=== PATIENT | male | born 1955 | race Caucasian/White ===

== ENCOUNTER 2021-03-19 13:29 | Inpatient (IN) | payer MEDICARE, OTHER ==
[~2021-03-19] VITALS: Ht 180.3 cm; Wt 81.2 kg
[2021-03-19] MEDS ORDERED: LACT10SO3 PO (14:47)
[2021-03-19] MEDS ORDERED: LEVO150T8 PO (14:47)
[2021-03-19] MEDS ORDERED: OLOP2.5D12 EACHEYE (14:47)
[2021-03-19] MEDS ORDERED: LOSA100T31 PO (14:47)
[2021-03-19] MEDS ORDERED: METF-440 PO (14:47)
[2021-03-19] MEDS ORDERED: NAPH15DR68 EACHEYE (14:47)
[2021-03-19] MEDS ORDERED: CHOL100043 PO (14:47)
[2021-03-19] MEDS ORDERED: MAGN400O6 PO (14:47)
[2021-03-19] MEDS ORDERED: ACET-868 PO (14:47)
[2021-03-19] MEDS ORDERED: FENO54TA PO (14:47)
[2021-03-19] MEDS ORDERED: BENZ0.5T43 PO (14:47)
[2021-03-19] MEDS ORDERED: MELA3TAB41 PO (14:47)
[2021-03-19] MEDS ORDERED: ALBU8.5H8 IH (14:47)
[2021-03-19] MEDS ORDERED: NAPR-1009 PO (14:47)
[2021-03-19] MEDS ORDERED: BISA10SU11 RC (14:47)
[2021-03-19] MEDS ORDERED: DOCU-141 PO (14:47)
--- NOTE | 2021-03-19 14:51 | NUR ---
DR BLISS AT BEDSIDE
--- NOTE | 2021-03-19 15:20 | NUR ---
CALLED [facility] [phone] RN IS FE HAPPENED AROUND "12ISH" COVID VACCINE IS CURRENT WITH MODERNA 1) 04/10/20 2) 05/09/20 3) 02-05-2021
--- NOTE | 2021-03-19 15:30 | NUR ---
IV LINE STARTED BLOOD DRAWN, SPECIMEN COLLECTED AND SENT TO LAB.
[2021-03-19 15:39] LABS: BASOPHILS # (AUTO) 0.1 K/uL (0.0-0.2); BASOPHILS % (AUTO) 0.7 % (0.0-2.0); HEMATOCRIT 50 % (39-51); HEMOGLOBIN 16.8 g/dL (13.5-17.5); LYMPHOCYTES # (AUTO) 1.2 K/uL (0.8-4.8); LYMPHOCYTES % (AUTO) 6.2 % (20.0-44.0); MEAN CORPUSCULAR HGB CONC 34 g/dl (31.0-36.0); MEAN CORPUSCULAR VOLUME 90 fL (80-96); MONOCYTES # (AUTO) 1.8 K/uL (0.1-1.30); MONOCYTES % (AUTO) 8.8 % (2.0-12.0); NEUTROPHILS # (AUTO) 17.1 K/uL (1.8-8.9); NEUTROPHILS % (AUTO) 84.3 % (43.0-81.0); PLATELET COUNT (AUTO) 310 K/uL (150-450); RED BLOOD CELL COUNT(AUTO) 5.52 MIL/uL (4.5-6.0); WHITE BLOOD COUNT (AUTO) 20.2 K/uL (4.3-11.0)
--- NOTE | 2021-03-19 15:45 | NUR ---
PT TO RADIOLOGY FOR HEAD CT SCAN VIA [facility].
[2021-03-19 15:51] LABS: CARBON DIOXIDE 26 mmol/L (21-32); CHLORIDE 93 mmol/L (98-107); CREATININE 1.5 mg/dL (0.6-1.3); GLUCOSE 154 mg/dL (74-106); POTASSIUM 3.6 mmol/L (3.5-5.1); SODIUM SERUM 129 mmol/L (136-145); UREA NITROGEN, BLOOD 19 mg/dL (7-18)
[2021-03-19 16:02] LABS: ACETAMINOPHEN < 0 ug/ml (10-30); ALANINE AMINOTRANSFERASE 40 U/L (12-78); ALBUMIN 4.4 g/dL (3.4-5.0); ALCOHOL, BLOOD < 3 mg/dL (0-0); ALKALINE PHOSPHATASE 87 U/L (46-116); ASPARTATE AMINOTRANSFERASE 26 U/L (15-37); BILIRUBIN,DIRECT 0.1 mg/dL (0.0-0.2); BILIRUBIN,TOTAL 0.5 mg/dL (0.2-1.0); TOTAL PROTEIN, SERUM 8.3 g/dL (6.4-8.2)
--- NOTE | 2021-03-19 16:04 | NUR ---
COVID TEST COLLECTED AND SENT
[2021-03-19 16:07] LABS: THYROID STIMULATING HORMONE 2.535 uIU/mL (0.358-3.74)
[2021-03-19 16:22] LABS: BILIRUBIN,URINE Negative (NEGATIVE); COLOR,URINE YELLOW (YELLOW); LEUKOCYTE ESTERASE ,URINE Negative (NEGATIVE); NITRITE, URINE Negative (NEGATIVE); PH,URINE 5.5 (5.0-8.0); PROTEIN,URINE 100 mg/dl (NEGATIVE); UGLUCOSE 100 MG/DL mg/dL (NEGATIVE); UROBILINOGEN,URINE 0.2 EU/dL (0.2)
--- NOTE | 2021-03-19 16:40 | NUR ---
URINE COLLECTED AND SENT TO LAB
[2021-03-19 16:45] LABS: BACTERIA,URINE None seen /HPF (None Seen); SQUAMOUS EPITHELIAL CELL,UR Few /HPF (None Seen); WBC,URINE 0-2 /HPF (0-3)
[2021-03-19] MEDS: VANCOMYCIN 1 GM in IV D5W 250 ML IV ONE ×2 (17:00→17:30)
[2021-03-19] MEDS ORDERED: PIPERACILLIN /TAZOBACTAM 2.25 G in IV D5W 50 ML IV ONE (17:00)
[2021-03-19] MEDS ORDERED: ONDANSETRON HCL/PF 4 MG/2 ML VIAL IVP PRN (17:30)
[2021-03-19] MEDS ORDERED: ACETAMINOPHEN 325 MG TABLET PO PRN (17:30)
[2021-03-19] MEDS ORDERED: MAGNESIUM HYDROXIDE 30 ML UDC PO PRN (17:30)
[2021-03-19] MEDS ORDERED: MAG HYDROX/AL HYDROX/SIMETH 30 ML UDC PO PRN (17:30)
[2021-03-19] MEDS ORDERED: IV NS 0.9% 1,000 ML BAG IV ONE (17:30)
[2021-03-19] MEDS ORDERED: Z GUARD REMEDY 2 OZ OINT TP PRN (17:30)
--- NOTE | 2021-03-19 20:07 | NUR ---
ROOM 118-1
--- NOTE | 2021-03-19 20:19 | NUR ---
CALLED [facility] FOR REPORT, NURSE WILL CALL BACK
--- NOTE | 2021-03-19 20:51 | NUR ---
REPORT GIVEN TO THEA BO
--- NOTE | 2021-03-19 22:02 | NUR ---
RETAIL INTERIOR DESIGNER NOTE RECEIVED PATIENT FROM ER, 65 YR OLD MALE, WITH D/X OF SEPSIS BY . IS A/OX 2,AT CONFUSED AT TIMES. WITH NO DISCOMFORT OR IN DISTRESS, NO SOB , O2 SAT 97% AT RA. IV SL AT LEFT HAND #18G, INTACT AND PATENT. PATIENT IS ON ISOLATION PRECAUTIONS WITH PENDING PCR IN PLACE. ISOLATION PRECAUTIONS TAKEN, ORIENTED THE PATIENT TO HIS ROOM, SKIN INTACT, ADMITTING ORDERS CHECKED. CALL LIGHT WITHIN REACH, BED IN LOW POSITION, LOCKED, SIDE RAILS UP X3, REMINDED PATIENT TO CALL US IF HE NEEDS ANTYTHING. CONTINUE TO MONITOR.
[2021-03-19] MEDS: IV NS 0.9% 1,000 ML IV PRN (22:25)
[2021-03-20] VITALS: BP 164/94
[2021-03-20] MEDS: ZOSYN IVPB 3.375 G in IV D5W 50ml IV SCH ×5 (00:10→23:34)
[2021-03-20] MEDS ORDERED: INSULIN REGULAR, HUMAN 100 UNIT/ML 3 ML VIAL SQ PRN (01:00)
[2021-03-20] MEDS ORDERED: DEXTROSE 50%-WATER 50 ML DISP.SYRIN IV PRN (01:00)
[2021-03-20] MEDS ORDERED: *INSULIN REGULAR(HUMULIN R)HUM 100 UNIT/ML VIAL SQ PRN (01:00)
[2021-03-20] MEDS ORDERED: CLONIDINE HCL 0.1 MG TABLET PO PRN (01:00)
[2021-03-20] MEDS: BLOOD SUGAR DIAGNOSTIC 1 EACH STRIP VI SCH ×5 (01:02→22:41)
--- NOTE | 2021-03-20 02:07 | NUR ---
BRASS ROLLER NOTE RE- ASSESSED PATIENT AFTER ADMINISTRATION OF CLONIDINE AT @0107 , BP WAS DECREASED TO 132/83 AT @0207
[2021-03-20 04:00] VITALS: BP 119/81
--- NOTE | 2021-03-20 05:30 | NUR ---
IV SITE INFILTRATED, REMOVED IV FROM THE LEFT HAND, TRIED X3 TO REINSERT BUT NO SUCCESS. CHARGE NURSE INFORMED, SHE WILL TRY IT.
[2021-03-20] MEDS ORDERED: VANCOMYCIN HCL 0.75 GM in IV D5W 250 ML IV SCH (06:00)
--- NOTE | 2021-03-20 06:53 | NUR ---
BAKER BISCUIT NOTE PATIENT IN BED ASLEEP. NO DISCOMFORT OR DISTRESS NOTED. SINUS RHYTHM DURING THE SHIFT, SIDE RAILS UP. CALL LIGHT WITHIN REACH, WILL ENDORSE TO DAY SHIFT NURSE.
[2021-03-20 07:13] LABS: BASOPHILS # (AUTO) 0.1 K/uL (0.0-0.2); BASOPHILS % (AUTO) 0.7 % (0.0-2.0); EOSINOPHILS % (AUTO) 0.2 % (0.0-6.0); HEMATOCRIT 43 % (39-51); HEMOGLOBIN 14.9 g/dL (13.5-17.5); LYMPHOCYTES # (AUTO) 1.8 K/uL (0.8-4.8); MEAN CORPUSCULAR HGB CONC 35 g/dl (31.0-36.0); MEAN CORPUSCULAR VOLUME 91 fL (80-96); MONOCYTES # (AUTO) 1.2 K/uL (0.1-1.30); MONOCYTES % (AUTO) 11.7 % (2.0-12.0); NEUTROPHILS # (AUTO) 7.4 K/uL (1.8-8.9); NEUTROPHILS % (AUTO) 70.4 % (43.0-81.0); PLATELET COUNT (AUTO) 254 K/uL (150-450); RED BLOOD CELL COUNT(AUTO) 4.72 MIL/uL (4.5-6.0); WHITE BLOOD COUNT (AUTO) 10.4 K/uL (4.3-11.0)
--- NOTE | 2021-03-20 07:25 | NUR ---
RN OPENING NOTES RECEIVED PT ON BED, AWAKE AND VERBALLY RESPONSIVE, NO SIGNS OF ACUTE RESPIRATORY DISTRESS NOTED. ON ROOM AIR, TOLERATING WELL, NO SOB NOTED, BREATHING EVEN AND UNLABORED. ON CALL CENTRE SUPERVISOR WITH CURRENT READING OF SR WITH HR @72. SAFETY MEASURES IN PLACE. BED LOCKED AND IN LOWEST POSITION, SR UP X2, CALL LIGHT PLACED WITHIN EASY REACH. WILL CONTINUE TO MONITOR.
[2021-03-20 07:48] LABS: CALCIUM, SERUM 9.2 mg/dL (8.5-10.1); CREATININE 1.2 mg/dL (0.6-1.3); MAGNESIUM 2.2 mg/dL (1.8-2.4); PHOSPHORUS 3.1 mg/dL (2.5-4.9); POTASSIUM 3.8 mmol/L (3.5-5.1)
[2021-03-20 08:00] VITALS: BP 152/97
[2021-03-20] MEDS: LEVETIRACETAM (250 MG) 250 MG TABLET PO SCH ×2 (11:16→21:54)
[2021-03-20 12:00] VITALS: BP 157/74
[2021-03-20 16:00] VITALS: BP 115/68
--- NOTE | 2021-03-20 18:42 | NUR ---
RN CLOSING NOTES PATIENT ON BED, AWAKE AND VERBALLY RESPONSIVE, NO SIGNS OF ACUTE RESPIRATORY DISTRESS NOTED. REMAINS ON ROOM AIR, TOLERATING WELL, NO SOB, BREATHING EVEN AND UNLABORED. NO COMPLAINS OF PAIN OR DISCOMFORT AT THIS TIME. ON PHERESIS SPECIALIST WITH NSR WITH HR @92. ALL DUE MEDS GIVEN, TOLERATED WELL. VIDAL ML #18G AND LHAND #22G IV ACCESS, INTACT AND PATENT, WITH NS @75ML/HR RUNNING. SAFETY MEASURES IN PLACE. BED LOCKED AND IN LOWEST POSITION, SR UP X2, CALL LIGHT PLACED WITHIN EASY REACH. WILL ENDORSE TO NEXT SHIFT.
--- NOTE | 2021-03-20 19:50 | NUR ---
RN NOTES RECEIVED CARE OF PATIENT WHILE PATIENT IN BED, ASLEEP BUT WAKES UP TO NAME. PATIENT IS A/O X2. PATIENT IS ON ROOM AIR, O2 SAT AT THIS TIME IS 98%, NO SOB NOTED. PATIENT IS ON TELE MONITOR, NSR WITH HR OF 67, NO SIGNS OF DISTRESS NOTED. VIDAL ML #18G AND LHAND #22G IV ACCESS, INTACT AND PATENT, WITH NS @75ML/HR RUNNING. NO SIGNIFICANT FINDINGS UPON INITIAL NURSING ASSESSMENTS, ALL SAFETY MEASURES IN PLACE. BED LOCKED AND IN LOWEST POSITION, SR UP X2, CALL LIGHT PLACED WITHIN EASY REACH. WILL CONTINUE TO MONITOR FOR ANY CHANGES IN PATIENT'S CONDITION.
[2021-03-20 20:00] VITALS: BP 144/79
--- NOTE | 2021-03-20 22:41 | NUR ---
RN NOTES BLOOD SUGAR IS 101 mg/dL AT THIS TIME. NO INSULIN COVERAGE NEEDED PER SLIDING SCALE. WILL CONTINUE TO MONITOR PATIENT.
[2021-03-21] VITALS: BP 124/65
[2021-03-21 04:00] VITALS: BP 117/75
[2021-03-21] MEDS: ZOSYN IVPB 3.375 G in IV D5W 50ml IV SCH ×3 (06:16→17:16)
--- NOTE | 2021-03-21 07:00 | NUR ---
RN CLOSING NOTES WILL ENDORSE PATIENT TO DAY SHIFT NURSE WHILE PATIENT IS IN BED, ASLEEP BUT WAKES UP TO NAME. PATIENT IS A/O X2. PATIENT IS ON ROOM AIR, O2 SAT AT THIS TIME IS 95%, NO SOB NOTED. PATIENT IS ON TELE MONITOR, NSR WITH HR OF 75, NO SIGNS OF DISTRESS NOTED. VIDAL ML #18G AND LHAND #22G IV ACCESS, INTACT AND PATENT, WITH NS @75ML/HR RUNNING. NO SIGNIFICANT FINDINGS UPON ALL NURSING ASSESSMENTS, ALL SAFETY MEASURES IN PLACE. BED LOCKED AND IN LOWEST POSITION, SR UP X2, CALL LIGHT PLACED WITHIN EASY REACH. WILL ENDORSE TO DAY SHIFT NURSE FOR TINY.
--- NOTE | 2021-03-21 07:22 | NUR ---
SHIPYARD PAINTING SUPERVISOR OPENING NOTES RECEIVED PT ON BED, AWAKE AND VERBALLY RESPONSIVE. WITH EQUAL AND UNLABORED BREATHING WITH NO SIGNS OF ACUTE RESPIRATORY DISTRESS NOTED AT THIS TIME. ON ROOM AIR, TOLERATING WELL, NO SOB NOTED, BREATHING EVEN AND UNLABORED. ON TALKING BOOKS LIBRARY CLERK WITH READING OF SR. SAFETY MEASURES IN PLACE WITH BED LOCKED AND IN LOWEST POSITION, SIDERAILS UP X2, CALL LIGHT PLACED WITHIN EASY REACH. WILL CONTINUE TO MONITOR PATIENT.
[2021-03-21 08:00] VITALS: BP 148/90
[2021-03-21] MEDS: BLOOD SUGAR DIAGNOSTIC 1 EACH STRIP VI SCH ×4 (08:05→22:10)
[2021-03-21] MEDS: LEVETIRACETAM (250 MG) 250 MG TABLET PO SCH ×2 (08:31→21:00)
[2021-03-21 12:00] VITALS: BP 145/88
[2021-03-21 16:00] VITALS: BP 143/86
[2021-03-21] MEDS: IV NS 0.9% 1,000 ML IV PRN (16:07)
--- NOTE | 2021-03-21 19:22 | NUR ---
PET CARE TECHNICIAN CLOSING NOTES PT ON BED, AWAKE AND VERBALLY RESPONSIVE. WITH EQUAL AND UNLABORED BREATHING WITH NO SIGNS OF ACUTE RESPIRATORY DISTRESS NOTED AT THIS TIME. ON ROOM AIR, TOLERATING WELL, NO SOB NOTED, BREATHING EVEN AND UNLABORED. ON HANDLE MACHINE OPERATOR WITH READING OF SR. SAFETY MEASURES IN PLACE WITH BED LOCKED AND IN LOWEST POSITION, SIDERAILS UP X2, CALL LIGHT PLACED WITHIN EASY REACH. WILL ENDORSE PATIENT FOR CONTINUITY OF CARE.
--- NOTE | 2021-03-21 19:31 | NUR ---
RN NOTES RECEIVED CARE OF PATIENT WHILE PATIENT IS IN BED, AWAKE, PATIENT IS A/O X2. PATIENT IS ON ROOM AIR, O2 SAT AT THIS TIME IS 97%, NO SOB NOTED. PATIENT IS ON TELE MONITOR, NSR WITH HR OF 87, NO SIGNS OF DISTRESS NOTED. VIDAL ML #18G IV ACCESS, INTACT AND PATENT, WITH NS @75ML/HR RUNNING. NO SIGNIFICANT FINDINGS UPON INITIAL NURSING ASSESSMENTS, ALL SAFETY MEASURES IN PLACE. BED LOCKED AND IN LOWEST POSITION, SR UP X2, CALL LIGHT PLACED WITHIN EASY REACH. BED ALARM IS ON. WILL CONTINUE TO MONITOR FOR CHANGES IN PATIENT'S CONDITION.
[2021-03-21 20:00] VITALS: BP 141/62
[2021-03-22] VITALS: BP 153/85
[2021-03-22] MEDS: ZOSYN IVPB 3.375 G in IV D5W 50ml IV SCH ×3 (00:43→11:02)
[2021-03-22 04:00] VITALS: BP 157/97
--- NOTE | 2021-03-22 06:30 | NUR ---
RN NOTES WILL ENDORSE CARE OF PATIENT WHILE PATIENT IS IN BED, AWAKE, A/O X2. PATIENT IS ON ROOM AIR, O2 SAT AT THIS TIME IS 99%, NO SOB NOTED. PATIENT IS ON TELE MONITOR, SINUS BRADYCARDIA WITH HR OF 52, NO SIGNS OF DISTRESS NOTED. VIDAL ML #18G IV ACCESS, INTACT AND PATENT, WITH NS @75ML/HR RUNNING. ALL MEDS GIVEN, ATTENDED TO ALL NEEDS OF THE PATIENT. NO SIGNIFICANT FINDINGS UPON ALL NURSING ASSESSMENTS, ALL SAFETY MEASURES IN PLACE. BED LOCKED AND IN LOWEST POSITION, SR UP X2, CALL LIGHT PLACED WITHIN EASY REACH. BED ALARM IS ON. WILL ENDORSE TO DAY SHIFT NURSE FOR TINY.
[2021-03-22] MEDS: BLOOD SUGAR DIAGNOSTIC 1 EACH STRIP VI SCH ×2 (07:37→12:27)
--- NOTE | 2021-03-22 07:42 | NUR ---
RN OPENING NOTE RECEIVE REPORT FROM DIRECTOR OF SLEEP NURSE. PATIENT IN STABLE CONDITION AT TIME OF REPORT WITH NO SIGN OF DISTRESS. ON ROOM AIR WITH O2 SAT 99%. A/O X2-3 VIDAL MIDLINE FLUSH RUNNING NS @ 75ML/HR. CONTINUE BLOOD GLUCOSE CHECK. WILL FOLLOW UP AM LABS AND DOCTOR ORDERS. PROPER ISOLATION PRECAUTION IN PLACE. ALL SAFETY MEASURE IN PLACE. BED ON LOWEST POSITION WITH HOB ELEVATED AND 3 SIDE RAIL UP. CALL LIGHT WITHIN REACH. WILL CONTINUE TO MONITOR.
[2021-03-22 08:00] VITALS: BP 170/95
[2021-03-22] MEDS: LEVETIRACETAM (250 MG) 250 MG TABLET PO SCH (08:10)
[2021-03-22] MEDS ORDERED: LEVE250T2 PO (10:30)
[2021-03-22 12:00] VITALS: BP 165/97
--- NOTE | 2021-03-22 13:05 | NUR ---
RN NOTE PATIENT HAVE BEEN DISCHARGE TO [facility]. PATIENT IN STABLE CONDITION AT TIME OF DISCHARGE WITH NO SIGN OF DISTRESS. VITAL SIGNS WITHIN NORMAL LIMIT. REPORT WAS GIVEN TO MARIELA RN AT [facility]. ALL BELONGING ACCOUNTED FOR. MIDLINE WAS REMOVED AND HEMOSTASIS ACHIEVED.
== END 2021-03-22 13:10 | DRG 100 ==
LOC: ER 13:34 → TRANSITION 18:18 → TELE1 20:14
PROVIDERS: ADMIT Internal Medicine; ATTEND Internal Medicine
PROC: 05H533Z Insertion of Infusion Device into Right Subclavian Vein, Percutaneous Approach (ICD-10-PCS; principal; 2021-03-20)
PROC: B546ZZA Ultrasonography of Right Subclavian Vein, Guidance (ICD-10-PCS; 2021-03-20)
DX: R56.9 Unspecified convulsions (principal); N17.0 Acute kidney failure with tubular necrosis; G93.41 Metabolic encephalopathy; E87.1 Hypo-osmolality and hyponatremia; K86.1 Other chronic pancreatitis; E87.2 Acidosis; K57.92 Diverticulitis of intestine, part unspecified, without perforation or abscess without bleeding; E03.9 Hypothyroidism, unspecified; E11.9 Type 2 diabetes mellitus without complications; I10 Essential (primary) hypertension; Z20.822 Contact with and (suspected) exposure to COVID-19; Z86.73 Personal history of transient ischemic attack (TIA), and cerebral infarction without residual deficits; E78.5 Hyperlipidemia, unspecified; E86.1 Hypovolemia; K21.9 Gastro-esophageal reflux disease without esophagitis; F20.9 Schizophrenia, unspecified; F32.A Depression, unspecified; F41.9 Anxiety disorder, unspecified; Z79.84 Long term (current) use of oral hypoglycemic drugs; D72.829 Elevated white blood cell count, unspecified
CPT/HCPCS: 36415; 70450-TC; 71045-TC; 80048-TC; 80076-TC; 81001; 82140-TC; 82962-TC; 83605-TC; 83735-TC; 84100-TC; 84443-TC; 85025-TC; 87040-TC; 87081-TC; 87086-TC; G0378; G0480; J1815; J2543; J3370; J7030; J7060; U0003